=== PATIENT | female | born 1975 | race Caucasian/White ===

== ENCOUNTER 2021-10-23 08:59 | Emergency (ER) | payer SELFPAY ==
[2021-10-23 10:24] LABS: HEMOGLOBIN 15.8 gm/dl (12.3-15.3); RED BLOOD COUNT 5.07 M/UL (4.00-5.10); WHITE BLOOD COUNT 2.5 K/UL (4.5-11.0)
[2021-10-23 11:06] LABS: BUN/CREATININE RATIO 28 (0-10)
[2021-10-23] MEDS ORDERED: AZITHROMYCIN250 MG PO (12:51)
[2021-10-23] MEDS ORDERED: AMOX TR-K CLV1 EAC4 PO (12:51)
== END 2021-10-23 12:07 | disposition home or self-care (01) ==
LOC: ER1 08:59
PROVIDERS: Emergency Medicine
DX: J84.9 Interstitial pulmonary disease, unspecified (principal); Z20.822 Contact with and (suspected) exposure to COVID-19
CPT/HCPCS: 0240U; 71045; 80053; 82550; 82553; 83880; 84484; 85025; 87081; 87880; 93005; 99284